=== PATIENT | female | born 1965 | race Caucasian/White ===

== ENCOUNTER 2021-01-29 11:26 | Inpatient (IN) | payer MEDICARE, MEDICAID, SELFPAY ==
[2021-01-29] VITALS (36 sets, daily range): BP systolic 103–128; BP diastolic 57–96; PULSE 84–132; RESP 15–33; TEMP 36–36.4; O2SAT 96–100
--- NOTE | ~2021-01-29 | CT_ITS ---
EXAMINATION: CTA chest PE protocol EXAM DATE: 01/29/2021 13:03 INDICATION: Mid chest pain. TECHNIQUE: Spiral CTA of the chest (pulmonary arteries) was performed with 100 cc Omnipaque 350 intr avenous contrast injection. Images were acquired during the pulmonary arterial phase. Coronal maxi mum intensity projection 3D-reconstructions were created by the technologist on dedicated workstation . Axial, coronal and sagittal reformatted images were reviewed. The dose-length product (DLP) for t his examination was 146.96 mGy-cm. The exposure was tailored according to patient size (auto mA exp osure control), and iterative reconstruction (ASIR) was used as additional dose reduction technique. There is no prior study for comparison. FINDINGS: Pulmonary arteries are well opacified and without intraluminal filling defects. Mildly dil ated central pulmonary arteries. There is mild to moderate emphysema. No thoracic aortic dissection. Dependent subsegmental atelectasis. Small pleural and pericardial effusions. Tracheobronchial maria r e is patent. Right upper paratracheal nodules of soft tissue measuring up to 1.4 x 1.0 cm and 1.9 x 0.9 cm, the larger has faint calcification, most likely from prior granulomatous process. There is no pneumothorax. Cardiomegaly. No evidence of coronary arterial calcification. Cholecystectomy cl ips. Left adrenal adenoma and a smaller myelolipoma. There is thoracic spondylosis without osteoblas tic or osteolytic lesions identified. IMPRESSION: 1. Cardiomegaly, mild central pulmonary arterial dilation without filling defects. 2. Incidental right paratracheal nodules, probably lymph nodes reactive from prior granulomatous pro cess; recommend 3 month follow-up chest CT without contrast. 3. Small pericardial and pleural effusions. 4. Mild to moderate emphysema. 5. Dependent subsegmental atelectasis. 6. Benign left adrenal lesions. Reviewed, dictated and finalized at location A. IMPRESSION: 1. Cardiomegaly, mild central pulmonary arterial dilation without filling defe cts. 2. Incidental right paratracheal nodules, probably lymph nodes reactive from p rior granulomatous process; recommend 3 month follow-up chest CT without contra st. 3. Small pericardial and pleural effusions. 4. Mild to moderate emphysema. 5. Dependent subsegmental atelectasis. 6. Benign left adrenal lesions.
--- NOTE | ~2021-01-29 | XR_ITS ---
EXAMINATION: XR chest 2V DATE: 01/29/2021 12:17 INDICATION: Chest pain. TECHNIQUE: Frontal and lateral views of the chest were obtained. COMPARISON: None. FINDINGS: There are airspace opacities at left lung base. There is a small left pleural effusion. No pneumothorax. The heart size is normal. There are surgical clips in the abdomen. IMPRESSION: 1. Airspace opacities at left lung base, consistent with atelectasis versus pneumonia. 2. Small left pleural effusion. Reviewed, dictated and finalized at location A. IMPRESSION: 1. Airspace opacities at left lung base, consistent with atelectasis versus pne umonia. 2. Small left pleural effusion.
--- NOTE | 2021-01-29 11:40 | ED.CHESTPAIN ---
HPI - Chest Pain General Chief Complaint: Chest Pain Stated Complaint: CP History of Present Illness HPI narrative: 55 yo female w/ h/o COPD, atrial fibrillation presents to the ED for chest pain. SHe has had continuous chest pain since about 3AM. She was initially able to get back to sleep, but when she woke up this morning it was worse. The pain is primarily at the right sternal border. Feels like a pulled muscle. Worse with taking a deep breath. She has reportedly had to be intubated twice this year 2/ to respiratory failure related to pneumonia. Related Data Home Medications Medication Instructions Recorded Confirmed Combivent Respimat 20 - 100 puff INHALATION QID 01/29/21 01/29/21 Iron Polysaccharide 150 mg PO DAILY 01/29/21 01/29/21 Xarelto 15 mg PO DAILY 01/29/21 01/29/21 alprazolam 0.25 mg PO TID PRN 01/29/21 01/29/21 calcitriol 0.25 mcg PO DAILY 01/29/21 01/29/21 cyanocobalamin (vitamin B-12) 1,000 mcg PO DAILY 01/29/21 01/29/21 diltiazem HCl 60 mg PO BID 01/29/21 01/29/21 folic acid 1 mg PO BID 01/29/21 01/29/21 furosemide 20 mg PO DAILY 01/29/21 01/29/21 magnesium oxide 400 mg PO DAILY 01/29/21 01/29/21 omeprazole 40 mg PO DAILY 01/29/21 01/29/21 Allergies Allergy/AdvReac Type Severity Reaction Status Date / Time Penicillins Allergy Rash Verified 01/29/21 15:44 ibuprofen AdvReac Intermediate Rash Verified 01/29/21 15:44 nitrofurantoin AdvReac Rash Verified 01/29/21 15:44 [From Macrobid] Sulfa (Sulfonamide AdvReac Rash Verified 01/29/21 15:44 Antibiotics) Review of Systems Review of Systems: All systems reviewed & are unremarkable except as noted in HPI and below Constitutional: Constitutional: Denies chills, Denies fever(s) and Denies weakness ENT: Reports system reviewed and no additional complaints, except as documented Cardiovascular: Cardiovascular: Reports chest pain and Denies radiating jaw, neck or arm pain Respiratory: Respiratory: Reports as per HPI Gastrointestinal: Gastrointestinal: Reports no additional gastrointestinal complaints Genitourinary: Genitourinary: Reports no additional female genitourinary complaints Musculoskeletal: Musculoskeletal: Reports no additional musculoskeletal complaints Neurologic: Reports system reviewed and no additional complaints, except as documented [facility] Past Medical History Medical History (Updated 02/11/21 @ 17:56 by Connor Stone MD) Anxiety Atrial fibrillation COPD (chronic obstructive pulmonary disease) History of bleeding ulcers History of cardioversion History of genital warts Hodgkins disease treated with chemotherapy at the age of 18 Neurogenic bladder the patient straight caths. 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 Pneumonia Respiratory failure TIA (transient ischemic attack) Surgical History Surgical History (Updated 01/29/21 @ 19:18 by Fany Whitfield NP) H/O left knee surgery History of section, classical Hx of cholecystectomy Family History Family History (Updated 01/29/21 @ 19:19 by Fany Whitfield NP) Father Alcoholism Mother Heart disease congestive heart failure Social History Social History (Updated 01/29/21 @ 19:20 by Fany Whitfield NP) Social History: the patient stated that she still smokes about 8-10 cigarettes a day. She is trying to quit. She has been smoking since she was 15 years old. She is considered disabled. She lives with her significant other. She has been in the past. She has 1 son. She denies any alcohol or illicit drugs. Smoking status: Current every day smoker Tobacco type: cigarettes Alcohol intake: never Substance use: never Gender identity (if verbalized by the patient): Female Sexual Orientation (if Verbalized by the Patient): Straight or Heterosexual Spiritual care concerns: No Exam Const: General: healthy appearing, no acute distress
--- NOTE | 2021-01-29 11:51 | ECG_ITS ---
Measurements Intervals [facility] [place] Rate: 97 P: [place]: 0 QRS: 74 QRSD: 81 T: 64 QT: 345 QTc: 440 Interpretive Statements ATRIAL FIBRILLATION BASELINE ARTIFACT- I, II, III, AVR, AVF ABNORMAL ECG Electronically Signed On 01-29-2021 12:14:54 CDT by Florencio Grider D.O.
[2021-01-29 12:09] LABS: Basophils Absolute Auto 0.1 K/mm3 (0.0-0.1); Basophils Percent Auto 0.2 % (0.2-1.2); Eosinophils Percent Auto 0.2 % (0-4.4); Hematocrit 33.4 % (37.0-47.0); Hemoglobin 10.3 g/dL (12.0-15.0); Immature Granulocyte Absolute 0.17 K/mm3 (0.00-0.031); Immature Granulocyte Percent A 0.7 % (0-0.5); Lymphocytes Absolute Auto 1.31 K/mm3 (0.9-3.2); Lymphocytes Percent Auto 5.2 % (18.3-44.2); Mean Corpuscular HGB Conc 30.8 g/dl (32-36); Mean Corpuscular Hemoglobin 25.8 pg (26-34); Mean Corpuscular Volume 83.5 fl (80-100); Mean Platelet Volume 9.3 fl (7.4-10.4); Monocytes Absolute Auto 1.1 K/mm3 (0.1-0.6); Monocytes Percent Auto 4.5 % (2.6-8.5); Neutrophils Absolute Auto 22.5 K/mm3 (1.3-6.7); Neutrophils Percent Auto 89.2 % (45.5-73.1); Platelet Count Result 225 k/mm3 (150-375); Red Cell Distribution Width 19.9 % (11.5-14.5); White Blood Count 25.2 K/mm3 (4.5-10.0)
[2021-01-29] MEDS: NITROGLYCERIN SL 0.4 MG TABLET SUBLINGUAL (12:22)
[2021-01-29 12:23] LABS: Alanine Aminotransferase 16 U/L (4-35); Albumin Level 4.2 g/dL (3.5-5.1); Alkaline Phosphatase 94 U/L (38-126); Anion Gap 7 mmol/L (8-16); Aspartate Amino Transferase 19 U/L (14-36); Bilirubin,Total 1.5 mg/dL (0.2-1.3); Blood Urea Nitrogen 29 mg/dL (7-17); Calcium 9.3 mg/dL (8.4-10.2); Carbon Dioxide 25 mmol/L (22-30); Chloride 103 mmol/L (98-107); Estimated CRCL calculation 32 ml/min; Estimated Glomerular Filt Rate 36; Glucose 112 mg/dL (65-105); Sodium 135 mmol/L (137-145)
[2021-01-29 12:26] LABS: INR 1.4; Partial Thromboplastin Time 28.6 SECONDS (22.3-36.8); Prothrombin Time 17.4 Seconds (11.1-14.7)
[2021-01-29] MEDS: SODIUM CHLORIDE 0.9% IV 1,000 ML 999 ML IV CONT (12:35)
--- NOTE | 2021-01-29 12:35 | PC.NURSE ---
chest pressure/discomfort now 4/10 after nitro sl x 1 dose. pressure/discomfort was previously 6/10 prior to nitro.
[2021-01-29 12:37] LABS: NT Pro B Type Natriuretic Pept 3190 PG/ML (5-100); Troponin I < 0.012 ng/mL (0.000-0.034)
--- NOTE | 2021-01-29 15:18 | ADMGEN ---
This patient, Heather Beal, was admitted to 2 Medical Room 247-. Patient/family oriented to hospital policies and general routines including ID bracelet, bed and alarms, visiting hours, pain management, procedures, bathroom and other care routines, personal items, smoking policy, room service/diet, and visiting hours. Information on how to activate the Rapid Response Team has been discussed. Patient/Family are encouraged to report perceived risks to care and to ask questions if they do not understand what they are told or what they should do.
[2021-01-29 15:35] LABS: Troponin I < 0.012 ng/mL (0.000-0.034)
--- NOTE | 2021-01-29 15:56 | PCRCNOTE ---
Window of time for administration has passed. See next scheduled administration.
[2021-01-29 18:19] LABS: Troponin I < 0.012 ng/mL (0.000-0.034)
--- NOTE | 2021-01-29 19:04 | PM.IMHP ---
H&P: HPI History of Present Illness Date/Time: 01/29/21 19:04 This is a 55-year-old female patient who has multiple specialty physicians at [facility]. She sees a urologist and a reworker as well as a child welfare assistant and a bowling alley attendant all at [facility]. The patient also goes to [facility]. The patient stated that she sees Dr. Lazar as her bowling alley attendant there. The patient stated that she had an echo proximally 1 week ago. She was told that she has a leaky valve and requires surgery. She does have it appointment to see a cardiac surgeon at [facility] on March 02. The patient recently found out that she had COPD as well. She had also has a history of Hodgkin's disease and had chemotherapy at the age of 18. She stated that her white count is always elevated. She has atrial fibrillation and has had 2 cardioversions but is back in AFib again. The patient is on anticoagulation. She has had a TIA in the past without any residual. 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 The patient stated that she was at [facility] and intubated for 2 weeks in October of this year. The patient stated that she was also intubated for 1 day at the end of last month. The patient came into the emergency room today because she started to have some chest pain on the right side of her chest. The pain was worse with inspiration. Patient was having difficulty going to sleep. The pain is at the right sternal border. She feels like this is a pulled muscle. The patient's white count was 25.2 today. Neutrophil percentage 89.2%. Chest x-ray was read as airspace opacities at the left lung base consistent with atelectasis versus pneumonia. Small left pleural effusion. CTA was read as cardiomegaly mild central pulmonary arterial dilatation without filling defects. Incidental right paratracheal nodules probably lymph nodes reactive from prior granulomatosis process recommended 3 month follow-up. Small pericardial pleural effusions. Mild to moderate emphysema. Dependent subsegmental atelectasis. Benign left adrenal lesions. Since the patient's white count was elevated she was empirically started on antibiotics for community-acquired pneumonia. She was started on a azithromycin and Rocephin. Neb treatments were ordered as well. The patient is being admitted to observation status on the date of service 01/29/2021. Chief Complaint: Chest pain to the right sternal border Review of Systems Review of Systems: All systems reviewed & are unremarkable except as noted in HPI and below Constitutional: Constitutional: Reports as per HPI and Reports no additional constitutional complaints Eyes: Eyes: Reports as per HPI and Reports no additional eye complaints ENT: Reports system reviewed and no additional complaints, except as documented and Reports Normal hearing present Cardiovascular: Cardiovascular: Reports no additional cardiovascular complaints Respiratory: Respiratory: Reports no additional respiratory complaints and Reports no additional respiratory complaints Gastrointestinal: Gastrointestinal: Reports as per HPI and Reports no additional gastrointestinal complaints Musculoskeletal: Musculoskeletal: Reports no additional musculoskeletal complaints Integumentary/Breasts: Skin/Breast: Reports system reviewed and no additional complaints, except as docu and Reports as per HPI Neurologic: Reports system reviewed and no additional complaints, except as documented, Reports as per HPI and Reports Normal hearing present Psychiatric: Psychiatric: Reports no additional psychiatric complaints and Reports as per HPI Endocrine: Endocrine: Reports no additional endocrine complaints Hematologic/Lymphatic: Hematologic/Lymphatic: Reports no additional hematologic/lymphatic complaints Allergic/Immunologic: Allergic/Immunologic: Reports no additional allergic/immunologic complaints [facility] Past Medical History Medical Hi
[2021-01-29] MEDS: ALBUTEROL SULFATE NEB 2.5 MG/0.5 ML INH 5 MG INHALATION (20:32)
[2021-01-29] MEDS: IPRATROPIUM BR 0.02% INH SOLN 0.5 MG/2.5 ML VIAL INHALATION (20:33)
[2021-01-29 20:38] LABS: Troponin I < 0.012 ng/mL (0.000-0.034)
[2021-01-29 21:38] LABS: Add Urine Microscopic? YES; Appearance Urine Clear (Clear); Bacteria Urine Trace /hpf; Bilirubin Urine Negative (Negative); Blood Urine 1+ (Negative); Color Urine Straw (Yellow); Glucose Urine UA Negative (Negative); Ketones Urine Negative (Negative); Leukocyte Esterase Ur Negative LEU/UL (Negative); Mucus Urine Rare /lpf; Nitrate Urine Negative (Negative); Protein Urine Negative (Negative); Specific Grav Ur 1.018 (1.001-1.035); Squamous Epithelial Cell Urine Occasional /hpf (Few); Urobilinogen Urine Negative mg/dL (<2.0); WBC Urine 0-3 /hpf
[2021-01-29] MEDS: RIVAROXABAN 15 MG TABLET PO (21:53)
[2021-01-29] MEDS: dilTIAZem HCL 60 MG TABLET PO (21:53)
[2021-01-29] MEDS: FOLIC ACID 1 MG TABLET PO (21:53)
[2021-01-30] VITALS (18 sets, daily range): BP systolic 101–153; BP diastolic 61–71; PULSE 52–94; RESP 16–20; TEMP 36–36.2; O2SAT 98–99
[2021-01-30] MEDS: ALBUTEROL SULFATE NEB 2.5 MG/0.5 ML INH 5 MG INHALATION ×4 (02:07→20:09)
[2021-01-30] MEDS: IPRATROPIUM BR 0.02% INH SOLN 0.5 MG/2.5 ML VIAL INHALATION ×4 (02:07→20:08)
[2021-01-30 05:40] LABS: Basophils Percent Auto 0.1 % (0.2-1.2); Eosinophils Absolute Auto 0.1 K/mm3 (0-0.3); Eosinophils Percent Auto 0.7 % (0-4.4); Hematocrit 31.1 % (37.0-47.0); Hemoglobin 9.3 g/dL (12.0-15.0); Immature Granulocyte Absolute 0.08 K/mm3 (0.00-0.031); Immature Granulocyte Percent A 0.6 % (0-0.5); Lymphocytes Percent Auto 10.8 % (18.3-44.2); Mean Corpuscular HGB Conc 29.9 g/dl (32-36); Mean Corpuscular Hemoglobin 25.1 pg (26-34); Mean Corpuscular Volume 83.8 fl (80-100); Mean Platelet Volume 9.6 fl (7.4-10.4); Monocytes Absolute Auto 0.8 K/mm3 (0.1-0.6); Neutrophils Absolute Auto 11.3 K/mm3 (1.3-6.7); Neutrophils Percent Auto 81.8 % (45.5-73.1); Platelet Count Result 207 k/mm3 (150-375); Red Blood Count 3.71 M/mm3 (4.2-5.4); Red Cell Distribution Width 19.7 % (11.5-14.5); White Blood Count 13.9 K/mm3 (4.5-10.0)
[2021-01-30 05:55] LABS: Alanine Aminotransferase 13 U/L (4-35); Albumin Level 3.6 g/dL (3.5-5.1); Alkaline Phosphatase 79 U/L (38-126); Anion Gap 6 mmol/L (8-16); Aspartate Amino Transferase 16 U/L (14-36); Bilirubin,Total 0.8 mg/dL (0.2-1.3); Blood Urea Nitrogen 25 mg/dL (7-17); Calcium 8.9 mg/dL (8.4-10.2); Carbon Dioxide 26 mmol/L (22-30); Chloride 106 mmol/L (98-107); Estimated CRCL calculation 30 ml/min; Estimated Glomerular Filt Rate 33; Glucose 111 mg/dL (65-105); Magnesium 1.9 mg/dL (1.6-2.3); Potassium 3.8 mmol/L (3.4-5.0); Sodium 138 mmol/L (137-145)
[2021-01-30 07:00] LABS: Thyroid Stimulating Hormone Reflex 0.472 uIU/mL (0.465-4.68)
[2021-01-30] MEDS: POLYSACCHARIDE IRON COMPLEX 150 MG CAPSULE PO (09:02)
[2021-01-30] MEDS: FUROSEMIDE 20 MG TABLET PO (09:02)
[2021-01-30] MEDS: CYANOCOBALAMIN 1,000 MCG TABLET 1000 MCG PO (09:02)
[2021-01-30] MEDS: calcitrioL 0.25 MCG CAPSULE PO (09:02)
[2021-01-30] MEDS: MAGNESIUM OXIDE 400 MG TABLET PO (09:03)
[2021-01-30] MEDS: FOLIC ACID 1 MG TABLET PO ×2 (09:03→20:16)
[2021-01-30] MEDS: PANTOPRAZOLE 40 MG TABLET PO (09:03)
[2021-01-30] MEDS: dilTIAZem HCL 60 MG TABLET PO ×2 (09:03→20:16)
[2021-01-30] MEDS: MUPIROCIN 2% OINT 22 GM TUBE 1 APPLIC TOPICAL ×2 (09:52→16:39)
--- NOTE | 2021-01-30 11:30 | PM.IMPN ---
Progress Note: A&P Assessment and Plan (1) Chest pain: Code(s): R07.9 - Chest pain, unspecified Status: Acute (2) Pneumonia: Code(s): J18.9 - Pneumonia, unspecified organism Status: Inactive Assessment and Plan: This is a 55-year-old female patient who has multiple specialty physicians at [facility]. She sees a urologist and a touch up carver as well as a tracer clerk and a glue bone crusher all at [facility]. The patient also goes to [facility]. The patient stated that she sees Dr. Lazar as her glue bone crusher there. The patient stated that she had an echo proximally 1 week ago. She was told that she has a leaky valve and requires surgery. She does have it appointment to see a cardiac surgeon at [facility] on March 02. The patient recently found out that she had COPD as well. She had also has a history of Hodgkin's disease and had chemotherapy at the age of 18. She stated that her white count is always elevated. She has atrial fibrillation and has had 2 cardioversions but is back in AFib again. The patient is on anticoagulation. She has had a TIA in the past without any residual. 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 The patient stated that she was at [facility] and intubated for 2 weeks in October of this year. The patient stated that she was also intubated for 1 day at the end of last month. The patient came into the emergency room today because she started to have some chest pain on the right side of her chest. The pain was worse with inspiration. Patient was having difficulty going to sleep. The pain is at the right sternal border. She feels like this is a pulled muscle. The patient's white count was 25.2 on day of admission. Neutrophil percentage 89.2%. Chest x-ray was read as airspace opacities at the left lung base consistent with atelectasis versus pneumonia. Small left pleural effusion. CTA was read as cardiomegaly mild central pulmonary arterial dilatation without filling defects. Incidental right paratracheal nodules probably lymph nodes reactive from prior granulomatosis process recommended 3 month follow-up. Small pericardial pleural effusions. Mild to moderate emphysema. Dependent subsegmental atelectasis. Benign left adrenal lesions. Since the patient's white count was elevated she was empirically started on antibiotics for community-acquired pneumonia. She was started on a azithromycin and Rocephin. Neb treatments were ordered as well. The patient is being admitted to observation status on the date of service 01/29/2021. # Chest pain: pleuritc. CT negative for pulmonary emboli. wbc elevated likely related to pneumonia. troponins negative. treat as pneumonia. BNP is elevated, no prior readings. recently had echo done. # CAP: CT reviewed. CT with findings: 1. Cardiomegaly, mild central pulmonary arterial dilation without filling defects. 2. Incidental right paratracheal nodules, probably lymph nodes reactive from prior granulomatous process; recommend 3 month follow-up chest CT without contrast. 3. Small pericardial and pleural effusions. 4. Mild to moderate emphysema. 5. Dependent subsegmental atelectasis. 6. Benign left adrenal lesions. # Neurogenic bladder: Patient needs to self calf every couple hours I did place order for her to self catheterization as needed. # Anxiety: Continue with alprazolam. # Heart valve regurgitation: request the records for an echo that was performed by Dr. Lazar. The patient is supposed to go to [facility] next month to to discuss surgery on the heart valve. # Atrial fibrillation: Continue with Xarelto and diltiazem. The patient remains in atrial fibrillation. # COPD (chronic obstructive pulmonary disease): not in exaceration. continue inhalers # DVT proph: xarelto (3) Heart valve regurgitation: Code(s): I38 - Endocarditis, valve unspecified Status: Acute
[2021-01-30] MEDS: RIVAROXABAN 15 MG TABLET PO (17:27)
[2021-01-31] VITALS (9 sets, daily range): BP systolic 106; BP diastolic 63; PULSE 66–94; RESP 16–21; TEMP 36.3; O2SAT 100
[2021-01-31] MEDS: ALBUTEROL SULFATE NEB 2.5 MG/0.5 ML INH 5 MG INHALATION ×2 (02:08→08:20)
[2021-01-31] MEDS: IPRATROPIUM BR 0.02% INH SOLN 0.5 MG/2.5 ML VIAL INHALATION ×2 (02:08→08:21)
[2021-01-31 05:37] LABS: Basophils Percent Auto 0.3 % (0.2-1.2); Eosinophils Absolute Auto 0.3 K/mm3 (0-0.3); Eosinophils Percent Auto 2.4 % (0-4.4); Hematocrit 29.3 % (37.0-47.0); Hemoglobin 8.9 g/dL (12.0-15.0); Immature Granulocyte Absolute 0.05 K/mm3 (0.00-0.031); Immature Granulocyte Percent A 0.4 % (0-0.5); Lymphocytes Absolute Auto 1.54 K/mm3 (0.9-3.2); Lymphocytes Percent Auto 11.6 % (18.3-44.2); Mean Corpuscular HGB Conc 30.4 g/dl (32-36); Mean Corpuscular Hemoglobin 24.8 pg (26-34); Mean Corpuscular Volume 81.6 fl (80-100); Mean Platelet Volume 9.7 fl (7.4-10.4); Monocytes Absolute Auto 0.6 K/mm3 (0.1-0.6); Monocytes Percent Auto 4.8 % (2.6-8.5); Neutrophils Absolute Auto 10.7 K/mm3 (1.3-6.7); Neutrophils Percent Auto 80.5 % (45.5-73.1); Platelet Count Result 216 k/mm3 (150-375); Red Blood Count 3.59 M/mm3 (4.2-5.4); Red Cell Distribution Width 19.2 % (11.5-14.5); White Blood Count 13.3 K/mm3 (4.5-10.0)
[2021-01-31 06:02] LABS: Anion Gap 8 mmol/L (8-16); Blood Urea Nitrogen 32 mg/dL (7-17); Calcium 9.3 mg/dL (8.4-10.2); Carbon Dioxide 25 mmol/L (22-30); Chloride 104 mmol/L (98-107); Estimated CRCL calculation 28 ml/min; Estimated Glomerular Filt Rate 31; Glucose 115 mg/dL (65-105); Potassium 3.6 mmol/L (3.4-5.0); Sodium 137 mmol/L (137-145)
[2021-01-31] MEDS: POLYSACCHARIDE IRON COMPLEX 150 MG CAPSULE PO (07:58)
[2021-01-31] MEDS: calcitrioL 0.25 MCG CAPSULE PO (07:58)
[2021-01-31] MEDS: MAGNESIUM OXIDE 400 MG TABLET PO (07:59)
[2021-01-31] MEDS: FUROSEMIDE 20 MG TABLET PO (07:59)
[2021-01-31] MEDS: CYANOCOBALAMIN 1,000 MCG TABLET 1000 MCG PO (07:59)
[2021-01-31] MEDS: FOLIC ACID 1 MG TABLET PO (07:59)
[2021-01-31] MEDS: dilTIAZem HCL 60 MG TABLET PO (07:59)
[2021-01-31] MEDS: PANTOPRAZOLE 40 MG TABLET PO (08:00)
[2021-01-31] MEDS: MUPIROCIN 2% OINT 22 GM TUBE 1 APPLIC TOPICAL (08:02)
--- NOTE | 2021-01-31 10:25 | PM.DS ---
DS: Admitting Diagnosis Admitting Diagnosis Admitting Diagnosis: chest pain DS: Discharge Diagnosis Discharge Diagnosis (1) CAP (community acquired pneumonia): Code(s): J18.9 - Pneumonia, unspecified organism Status: Acute (2) Chest pain: Code(s): R07.9 - Chest pain, unspecified Status: Acute (3) Neurogenic bladder: Code(s): N31.9 - Neuromuscular dysfunction of bladder, unspecified Status: Chronic (4) Anxiety: Code(s): F41.9 - Anxiety disorder, unspecified Status: Chronic (5) Heart valve regurgitation: Code(s): I38 - Endocarditis, valve unspecified Status: Acute (6) Atrial fibrillation: Code(s): I48.91 - Unspecified atrial fibrillation Status: Chronic (7) COPD (chronic obstructive pulmonary disease): Code(s): J44.9 - Chronic obstructive pulmonary disease, unspecified Status: Chronic (8) Mitral stenosis: Code(s): I05.0 - Rheumatic mitral stenosis Status: Acute DS: Summary Hospital Course Hospital Course: [place] [address] [address] [place] [address] Hospitalist Progress NoteSigned Patient: Heather Beal LMR#: [id number]: [id number]:[id number]/Sex: 55 / FADM Date: 01/29/21Loc: [id number] Dr: Terrance Gore MD cc: ~ Progress Note: A&P Assessment and Plan (1) Chest pain: Code(s): R07.9 - Chest pain, unspecified Status: Acute (2) Pneumonia: Code(s): J18.9 - Pneumonia, unspecified organism Status: Inactive Assessment and Plan: This is a 55-year-old female patient who has multiple specialty physicians at [facility]. She sees a urologist and a electronic musical instrument repairer as well as a marketing admin and a cone classifier tender all at [facility]. The patient also goes to [facility] [place]. The patient stated that she sees Dr. Lazar as her cone classifier tender there. The patient stated that she had an echo proximally 1 week ago. She was told that she has a leaky valve and requires surgery. She does have it appointment to see a cardiac surgeon at [facility] on March 02. The patient recently found out that she had COPD as well. She had also has a history of Hodgkin's disease and had chemotherapy at the age of 18. She stated that her white count is always elevated. She has atrial fibrillation and has had 2 cardioversions but is back in AFib again. The patient is on anticoagulation. She has had a TIA in the past without any residual. 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 The patient stated that she was at [facility] [place] and intubated for 2 weeks in October of this year. The patient stated that she was also intubated for 1 day at the end of last month. The patient came into the emergency room today because she started to have some chest pain on the right side of her chest. The pain was worse with inspiration. Patient was having difficulty going to sleep. The pain is at the right sternal border. She feels like this is a pulled muscle. The patient's white count was 25.2 on day of admission. Neutrophil percentage 89.2%. Chest x-ray was read as airspace opacities at the left lung base consistent with atelectasis versus pneumonia. Small left pleural effusion. CTA was read as cardiomegaly mild central pulmonary arterial dilatation without filling defects. Incidental right paratracheal nodules probably lymph nodes reactive from prior granulomatosis process recommended 3 month follow-up. Small pericardial pleural effusions. Mild to moderate emphysema. Dependent subsegmental atelectasis. Benign left adrenal lesions. Since the patient's white count was elevated she was empirically started on antibiotics for community-acquired pneumonia. She was started on a azithromycin and Rocephin. Neb treatments were ordered as well. The patient is being admitted to observation status on the date of service 01/29/2021. # Chest pain: pleuritc. CT negative fo
== END 2021-01-31 11:23 | disposition home health service (06) | DRG 195 ==
LOC: ANHED 11:55 → ANH2MED 14:28
PROVIDERS: Nurse Practitioner; Admitting Provider Internal Medicine; Emergency Provider Emergency Medicine; PCP Family Medicine; Visit Provider Internal Medicine
DX: J18.9 Pneumonia, unspecified organism (principal); J44.9 Chronic obstructive pulmonary disease, unspecified; I48.91 Unspecified atrial fibrillation; F17.210 Nicotine dependence, cigarettes, uncomplicated; N31.9 Neuromuscular dysfunction of bladder, unspecified; I05.0 Rheumatic mitral stenosis; Z85.71 Personal history of Hodgkin lymphoma
CPT/HCPCS: 36415; 71046; 71275; 80048; 80053; 81001; 83735; 83880; 84443; 84484; 85025; 85610; 85730; 87040; 87070; 87205; 93005; 94640; 96365; 96366; 96367; 99285; A9270; G0378; J0456; J0696; J7030; Q9967